=== PATIENT | female | born 1970 | race Caucasian/White ===

== ENCOUNTER → 2019-08-19 08:33 | Outpatient (CLI) | payer OTHER, SELFPAY ==
[2019-08-19 09:54] LABS: Hematocrit 33.3 % (36-46); Hemoglobin 10.9 g/dL (12.0-16.0); Mean Corpuscular HGB Conc 32.9 % (30-36); Mean Corpuscular Hemoglobin 25.1 PG (26-34); Mean Corpuscular Volume 76.4 fL (80-100); Platelet Count 236 X10^3/uL (150-400); Red Blood Cell Count 4.35 X10^6/uL (4.0-5.2); Red Cell Distribution Width 16.1 % (11.6-14.8); White Blood Cell Count 3.6 X10^3/uL (4.5-11.0)
[2019-08-19 10:36] LABS: Alanine Aminotransferase 16 IU/L (<35); Albumin 4.1 g/dL (3.5-5.0); Albumin Globulin Ratio 1.5 (1.0-2.8); Alkaline Phosphatase 58 U/L (38-126); Aspartate Aminotransferase 32 IU/L (14-36); BUN Creatinine Ratio 13.3 (6-22); Bilirubin Total 0.7 mg/dL (0.2-1.3); Blood Urea Nitrogen 13 mg/dL (7-17); Calcium 9.5 mg/dL (8.4-10.2); Carbon Dioxide 29 mmol/L (22-32); Chloride 103 mmol/L (98-107); Cholesterol 207 mg/dL (140-199); Estimated Glomerular Filt Rate > 60.0 mL/min (>60); Globulin 2.8 g/dL (1.7-4.1); Glucose 84 mg/dL (70-100); HDL Cholesterol 86 mg/dL (40-60); HEMOLYSIS < 15 (0-50); LDL Cholesterol Calculated 103 mg/dL (<100); Potassium 3.9 mmol/L (3.4-5.1); Sodium 137 mmol/L (137-145); Total Protein 6.9 g/dL (6.3-8.2); Triglycerides 88 mg/dL (35-150)
[2019-08-19 15:52] LABS: HEMOLYSIS < 15 (0-50); Iron 39 ug/dL (37-170)
[2019-08-19 16:03] LABS: Percent Iron Saturation 9 % (15-50); Total Iron Binding Capacity 431 ug/dL (265-497); Transferrin 333 mg/dL (206-381)
[2019-08-19 16:28] LABS: Ferritin 5 ng/mL (6-137)
== END ==
PROVIDERS: PCP Nurse Practitioner Family; Referring Provider Nurse Practitioner Family; Visit Provider Nurse Practitioner Family
DX: Z00.00 Encounter for general adult medical examination without abnormal findings (principal); Z13.6 Encounter for screening for cardiovascular disorders; D50.9 Iron deficiency anemia, unspecified
CPT/HCPCS: 36415; 80053; 80061; 82728; 83540; 83550; 85027

== ENCOUNTER → 2022-01-02 07:11 | Outpatient (CLI) | payer OTHER, SELFPAY ==
[2022-01-02 09:09] LABS: Rubella Antibody IgG 29.7 IU/mL (>15)
[2022-01-03 07:02] LABS: Rubeola Measles IgG 63.4 AU/mL (Immune >16.4)
[2022-01-04 08:32] LABS: Mumps Virus IgG Antibody <9.0 AU/mL (Immune >10.9)
== END ==
PROVIDERS: PCP Family Medicine; Referring Provider Family Medicine; Visit Provider Family Medicine
DX: Z02.0 Encounter for examination for admission to educational institution (principal); Z78.9 Other specified health status
CPT/HCPCS: 36415; 86735; 86762; 86765